=== PATIENT | female | born 1990 | race Caucasian/White ===

== ENCOUNTER 2018-04-24 19:25 | Inpatient (IN) | payer OTHER, SELFPAY ==
[2018-04-24] MEDS ORDERED: NA CHLORIDE 0.9% 1,000 ML ONE (19:50)
[2018-04-24 20:20] LABS: Absolute Lymphocytes (CBC) 4.9 K/uL (0.7-4.9); Absolute Neutrophil 8.2 K/uL (1.8-8.0); Basophils % 0.3 % (0-1.3); Eosinophils % 0.9 % (0-4.4); Hematocrit 35.2 % (36.0-45.0); Lymphocytes % 34.4 % (15.3-44.8); MPV 9.3 fL (7.6-11.3); Monocytes % 6.8 % (3.3-12.3); RBC Red Blood Cell Count 4.07 M/uL (3.86-4.86)
[2018-04-24 20:25] LABS: Protime INR 1.09
--- NOTE | 2018-04-24 20:32 | EDPHYS ---
Physician Documentation [facility] Name: Asia Myers Age: 28 yrs Sex: Female : 1990 Arrival Date: 04/24/2018 Time: 19:25 Bed 19 Private MD: ED Physician Tyler Kaur HPI: 04/24 19:46 This 28 yrs old Female presents to ER via Unassigned with complaints of jose luis Abdominal Pain. 19:46 The patient presents with abdominal pain in the upper abdomen, in the right upper jose luis quadrant, right lower quadrant. Onset: The symptoms/episode began/occurred just prior to arrival. sudden , pale, hypotensive, lmp february. The patient has experienced near-syncope, almost passed out. The patient presents with feeling faint, generalized weakness, sever abd pain. 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 - Social history:: Smoking status: Patient/guardian denies using tobacco, Patient/guardian denies using alcohol, street drugs. - Family history:: not pertinent. - Ebola Screening: : Patient negative for fever greater than or equal to 101.5 degrees Fahrenheit, and additional compatible Ebola Virus Disease symptoms Patient denies exposure to infectious person Patient denies travel to an Ebola-affected area in the 21 days before illness onset. ROS: 19:46 Neck: Negative for injury, pain, and swelling, : Negative for injury, bleeding, jose luis discharge, and swelling. 19:46 Constitutional: Positive for fatigue. 19:46 Cardiovascular: Positive for palpitations. 19:46 Abdomen/GI: Positive for abdominal pain, abdominal distension, of the right upper quadrant, left upper quadrant, right lower quadrant and left lower quadrant. 19:46 Skin: Positive for pallor. Exam: 19:46 Eyes: Pupils equal round and reactive to light, extra-ocular motions intact. Lids and jose luis lashes normal. Conjunctiva and sclera are non-icteric and not injected. Cornea within normal limits. Periorbital areas with no swelling, redness, or edema. Respiratory: Lungs have equal breath sounds bilaterally, clear to auscultation and percussion. No rales, rhonchi or wheezes noted. No increased work of breathing, no retractions or nasal flaring. 19:46 Constitutional: The patient appears in obvious distress, moderately distressed. 19:46 Eyes: Conjunctiva: pale. 19:46 Cardiovascular: Rate: tachycardic, Rhythm: regular, Pulses: Pulses are 2+ in bilateral radial, brachial, femoral, popliteal, posterior tibial and and dorsalis pedis arteries.. JVD: is not appreciated. 19:46 Respiratory: Exam negative for 19:46 Abdomen/GI: Inspection: distension, Bowel sounds: diminished, Palpation: severe abdominal tenderness, voluntary guarding, is elicited in all quadrants, Liver: no appreciated palpable abnormalities, Hernia: not appreciated. Vital Signs: 19:40 BP 89 / 58; Pulse 65; Resp 15; Temp 97.7; Pulse Ox 98% ; Weight 113.4 kg; Height 5 ft. rr5 7 in. (170.18 cm); Pain 10/10; 19:50 BP 97 / 71; Pulse 62; Resp 16; Pulse Ox 98% ; rr5 20:00 BP 98 / 52; Pulse 86; Resp 19; Pulse Ox 98% ; rr5 20:20 BP 96 / 69; Pulse 84; Resp 17; Pulse Ox 99% ; rr5 20:30 BP 100 / 72; Pulse 79; Resp 16; Pulse Ox 98% ; rr5 21:00 BP 93 / 63; Pulse 78; Resp 16; Pulse Ox 98% ; rr5 19:40 Body Mass Index 39.16 (113.40 kg, 170.18 cm) rr5 MDM: 19:29 Patient medically screened. [facility] 19:50 Data reviewed: vital signs, nurses notes, lab test result(s), EKG, radiologic studies, [facility] plain films, ultrasound. 04/24 19:45 Order name: Basic Metabolic Panel [facility] 04/24 19:45 Order name: CBC with Diff; Complete Time: 20:33 [facility] 04/24 19:45 Order name: LFT's [facility] 04/24 19:45 Order name: Magnesium [facility] 04/24 19:45 Order name: NT PRO-BNP [facility] 04/24 19:45 Order name: PT-INR; Complete Time: 20:33 [facility] 04/24 19:45 Order name: Troponin (emerg Dept Use Only) [facility] 04/24 19:45 Order name: Lipase [facility] 04/24 19:45 Order name: Urine Culture [facility] 04/24 19:45 Order name: HCG-Quantitative [facility] 04/24 19:45 Order name: Type And Screen [facility] 04/24 20:00 Order name: Packed RBC Leukored -1 [facility] 04/24 20:17 Order name: Urine Dipstick--Ancillary (enter results) 04/24 20:17 Order name: Urine --Ancillary (enter results) 04/24 19:45 Order name: EKG; Complete Time: 19:46 [facility] 04/24 19:45 Order name: Cardiac monitoring; Complete Time: 21:29 [facility] 04/24 19:45 Order name: EKG - Nurse/Tech; Complete Time: 21:29 [facility] 04/24 19:45 Order name: IV Saline Lock; Complete Time: 21:29 [facility] 04/24 19:45 Order name: Labs collected and sent; Complete Time: 21:29 [facility] 04/24 19:45 Order name: O2 Per Protocol; Complete Time: 21:30 [facility] 04/24 19:45 Order name: US Transvaginal Ob [facility] 04/24 20:22 Order name: Urine Dipstick--Ancillary (enter results) [facility] 04/24 20:22 Order name: Urine --Ancillary (enter results) [facility] 04/24 20:57 Order name: ABO/RH no charge [facility] 04/24 19:45 Order name: O2 Sat Monitoring; Complete Time: 21:30 [facility] 04/24 19:45 Order name: Urine Dipstick-Ancillary (obtain specimen); Complete Time: 21:29 [facility] 04/24 19:45 Order name: Urine Test (obtain specimen); Complete Time: 21:29 [facility] 04/24 19:45 Order name: IV Saline Lock - Large Bore; Complete Time: 21:35 [facility] 04/24 19:50 Order name: Phan; Complete Time: 21:26 [facility] 04/24 20:17 Order name: NPO; Complete Time: 21:30 [facility] Administered Medications: 19:50 Drug: NS 0.9% 1000 ml Route: IV; Rate: 1 bolus; Site: right forearm; rr5 20:45 Follow up: Response: No adverse reaction; IV Status: Completed infusion; IV Intake: rr5 1000ml 20:40 Drug: Rocephin - (cefTRIAXone) 1 grams Route: IVPB; Infused Over: 30 mins; Site: left rr5 hand; 21:10 Follow up: Response: No adverse reaction; IV Status: Completed infusion; IV Intake: [id number] 20:45 Drug: Ringers - Lactated Ringers Solution 1000 ml Route: IV; Rate: 1000 bolus; Site: rr5 right forearm; 21:15 Follow up: Response: No adverse reaction; IV Status: Infusion continued upon admission; rr5 IV Intake: 400ml 20:50 Drug: ProTONIX 40 mg Route: IVP; Site: right forearm; rr5 Disposition: 04/24/18 20:31 Hospitalization ordered by Lenny Mason for Inpatient Admission. Preliminary diagnosis are Ectopic - ruptured, Abdominal tenderness, Hemoperitoneum, Hypotension. - Bed requested for Operating Room. - Status is Inpatient Admission. rr5 - Condition is Guarded. - Problem is new. - Symptoms have improved. UTI on Admission? Yes Signatures: Dispatcher [employer] [facility] Tyler Kaur MD MD cha Roque, Raymond RN RN rr5 Corrections: (The following items were deleted from the chart) 20:34 19:45 Blood Transfusion Consent ordered. [facility] 20:34 20:13 Abdomen Complete+US.RAD.BRZ ordered. [facility] EDMN 20:35 20:31 Hospitalization Ordered by Lenny Mason MD for Inpatient Admission. [facility] Preliminary diagnosis is Ectopic - ruptured; Abdominal tenderness; Hemoperitoneum. Bed requested for Operating Room. Status is Inpatient Admission. Condition is Guarded. Problem is new. Symptoms have improved. UTI on Admission? Yes. [facility] 20:41 19:46 Chest Single View+RAD.RAD.BRZ ordered. [facility] EDMN 21:31 20:35 04/24/2018 20:31 Hospitalization Ordered by Lenny Mason MD for Inpatient rr5 Admission. Preliminary diagnosis is Ectopic - ruptured; Abdominal tenderness; Hemoperitoneum; Hypotension. Bed requested for Operating Room. Status is Inpatient Admission. Condition is Guarded. Problem is new. Symptoms have improved. UTI on Admission? Yes. [facility]
--- NOTE | 2018-04-24 20:32 | ER ---
Nurse's Notes [facility] Name: Asia Myers Age: 28 yrs Sex: Female : 1990 Arrival Date: 04/24/2018 Time: 19:25 Bed 19 Private MD: Diagnosis: Ectopic -ruptured;Abdominal tenderness;Hemoperitoneum;Hypotension Presentation: 04/24 19:40 Presenting complaint: EMS states: sudden onset of right upper quadrant pain, while she rr5 was in the restroom felt pain became diaphoretic and weak. 19:40 Transition of care: patient was not received from another setting of care. Onset of rr5 symptoms was April 24, 2018. Risk Assessment: Do you want to hurt yourself or someone else? Patient reports no desire to harm self or others. Initial Sepsis Screen: Does the patient meet any 2 criteria? No. Patient's initial sepsis screen is negative. Does the patient have a suspected source of infection? No. Patient's initial sepsis screen is negative. Care prior to arrival: None. 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 - Social history:: Smoking status: Patient/guardian denies using tobacco, Patient/guardian denies using alcohol, street drugs. - Family history:: not pertinent. - Ebola Screening: : Patient negative for fever greater than or equal to 101.5 degrees Fahrenheit, and additional compatible Ebola Virus Disease symptoms Patient denies exposure to infectious person Patient denies travel to an Ebola-affected area in the 21 days before illness onset. Screenin:45 Abuse screen: Denies threats or abuse. Denies injuries from another. Nutritional rr5 screening: No deficits noted. Tuberculosis screening: No symptoms or risk factors identified. Fall Risk IV access (20 points). Gait- Normal/Bed Rest/Wheelchair (0 pts) Total Diamond Fall Scale indicates No Risk (0-24 pts). Assessment: 19:45 General: Appears uncomfortable, ill, Behavior is calm, cooperative, appropriate for rr5 age, crying. Pain: Complains of pain in abdomen. Pain: Pain does not radiate. Pain currently is 10 out of 10 on a pain scale. Quality of pain is described as aching, Pain began suddenly, Is continuous. Neuro: Level of Consciousness is awake, alert, obeys commands, Oriented to person, place, time, situation, Appropriate for age. 19:45 Cardiovascular: Capillary refill < 3 seconds Clubbing of nail beds is present PALE. rr5 Cardiovascular: Rhythm is regular. Respiratory: Airway is patent Respiratory effort is even, unlabored, Respiratory pattern is regular, symmetrical. GI: Abdomen is round obese, Bowel sounds present X 4 quads. Abdomen is tender to palpation X 4 quads. Reports lower abdominal pain, upper abdominal pain. : No signs and/or symptoms were reported regarding the genitourinary system. EENT: No signs and/or symptoms were reported regarding the EENT system. Derm: Skin is intact, Skin is pale, Skin temperature is cool. Musculoskeletal: Capillary refill < 3 seconds, Range of motion: intact in all extremities. 19:50 Reassessment: No changes from previously documented assessment. Patient is alert, rr5 oriented x 3, equal unlabored respirations, skin warm/dry/pink. Seen and examined by dr. kaur with orders made and carried out. 20:15 Reassessment: Patient appears in no apparent distress at this time. smith catheter rr5 inserted by dr. kaur positive urine. whitish discharge noted. positive for test. [facility] Reassessment: dr. andino seen and examined the patient and patient agreed for stat rr5 surgery. consented. 21:00 Reassessment: Patient appears in no apparent distress at this time. Patient is alert, rr5 oriented x 3, equal unlabored respirations, skin warm/dry/pink. awaiting for stat operating staff to come. 21:15 Reassessment: endorsed to [place] surgery staff. vitally stable. rr5 Vital Signs: 19:40 BP 89 / 58; Pulse 65; Resp 15; Temp 97.7; Pulse Ox 98% ; Weight 113.4 kg; Height 5 ft. rr5 7 in. (170.18 cm); Pain 10/10; 19:50 BP 97 / 71; Pulse 62; Resp 16; Pulse Ox 98% ; rr5 20:00 BP 98 / 52; Pulse 86; Resp 19; Pulse Ox 98% ; rr5 20:20 BP 96 / 69; Pulse 84; Resp 17; Pulse Ox 99% ; rr5 20:30 BP 100 / 72; Pulse 79; Resp 16; Pulse Ox 98% ; rr5 21:00 BP 93 / 63; Pulse 78; Resp 16; Pulse Ox 98% ; rr5 19:40 Body Mass Index 39.16 (113.40 kg, 170.18 cm) rr5 ED Course: 19:15 Patient has correct armband on for positive identification. Placed in gown. Bed in low rr5 position. Call light in reach. Side rails up X2. alarm security or surveillance monitor on. Pulse ox on. NIBP on. 19:25 Patient arrived in ED. ds1 19:29 Tyler Kaur MD is Attending Physician. jose luis 19:46 Arm band placed on right wrist. rr5 19:50 No provider procedures requiring assistance completed. Inserted saline lock: 20 gauge rr5 in right forearm, using aseptic technique. Blood collected. 20:10 Inserted saline lock: 20 gauge in left hand, using aseptic technique. Blood collected. rr5 20:15 Smith cath inserted, using sterile technique, 16 Fr., balloon inflated, to gravity rr5 drainage, urine specimen collected. other inserted by dr. kaur returned yellow with white discharge. Patient tolerated well. 20:26 Walker Alanis, HERNANDO is Primary Nurse. rr5 20:29 Triage completed. rr5 20:29 Lenny Andino MD is Hospitalizing Provider. jose luis 20:42 Transvaginal Ob In Process Unspecified. EDMS 21:15 Patient admitted, IV remains in place. intact, No redness/swelling at site. rr5 Administered Medications: 19:50 Drug: NS 0.9% 1000 ml Route: IV; Rate: 1 bolus; Site: right forearm; rr5 20:45 Follow up: Response: No adverse reaction; IV Status: Completed infusion; IV Intake: rr5 1000ml 20:40 Drug: Rocephin - (cefTRIAXone) 1 grams Route: IVPB; Infused Over: 30 mins; Site: left rr5 hand; 21:10 Follow up: Response: No adverse reaction; IV Status: Completed infusion; IV Intake: 51wahs2 20:45 Drug: Ringers - Lactated Ringers Solution 1000 ml Route: IV; Rate: 1000 bolus; Site: rr5 right forearm; 21:15 Follow up: Response: No adverse reaction; IV Status: Infusion continued upon admission; rr5 IV Intake: 400ml 20:50 Drug: ProTONIX 40 mg Route: IVP; Site: right forearm; rr5 Intake: 20:45 IV: 1000ml; Total: 1000ml. rr5 21:10 IV: 10ml; Total: 1010ml. rr5 21:15 IV: 400ml; Total: 1410ml. rr5 Outcome: 20:31 Decision to Hospitalize by Provider. jose luis 21:15 Admitted to OR via stretcher, with chart, Report called to Sarah rr5 21:15 Condition: stable rr5 21:15 Instructed on the need for admit, need for stat surgery 21:31 Patient left the ED. rr5 Signatures: Dispatcher [employer] Tyler Maldonado MD MD cha Sanford, Demi ds1 Walker Alanis, RN RN rr5
[2018-04-24] MEDS ORDERED: PANTOPRAZOLE 40 MG INJ ONE (20:43)
[2018-04-24] MEDS ORDERED: CEFTRIAXONE/SWI 1gm 1 GM/10 ML SYR ONE (20:43)
[2018-04-24] MEDS ORDERED: Ringers Lactate 1,000 ML IV ONE ×3 (20:43→23:09)
--- NOTE | 2018-04-24 20:53 | RAD REPORT ---
EXAM DESCRIPTION: US - Transvaginal OB - 04/24/2018 8:42 pm CLINICAL HISTORY: Abd cramping, ;Abd pain COMPARISON: No comparisons FINDINGS: The uterus measures 7.3 x 5.5 x 4.6 cm. Endometrial stripe is thin without evidence of IUP . In the right adnexa, a gestational sac and small embryo is present measuring 17 mm corresponding to 8 weeks 0 days gestational age. Cardiac activity 105 BPM is seen. This is compatible with right adnexa l ectopic . Neither ovary was well identified due to bowel gas. No abnormality seen in the left adnexa. No pelvic ascites. IMPRESSION: Live 8 week ectopic is seen in the right adnexa. No pelvic free fluid.
[2018-04-24 20:59] LABS: ALT/SGPT 18 U/L (12-78); AST/SGOT 15 U/L (15-37); Albumin 2.9 g/dL (3.4-5.0); Alkaline Phosphatase 65 U/L (45-117); BUN Blood Urea Nitrogen 9 mg/dL (7-18); Bicarbonate 23 mmol/L (21-32); Bilirubin Direct < 0.1 mg/dL (0-0.2); Bilirubin Total 0.2 mg/dL (0.2-1.0); Glucose Level 118 mg/dL (74-106); HCG, Quantitative 17744 mIU/mL (1-3); Lipase 82 U/L (73-393); Magnesium 1.8 mg/dL (1.8-2.4); NT PRO-BNP 19 pg/mL (<125); Potassium 3.5 mmol/L (3.5-5.1); Protein, Total 6.5 g/dL (6.4-8.2); Sodium Level 140 mmol/L (136-145); Troponin (Emerg Dept Use Only) < 0.02 ng/mL (0.0-0.045)
[2018-04-24] MEDS ORDERED: PROPOFOL 200 MG/20 ML VIAL IV ONE (21:10)
[2018-04-24] MEDS ORDERED: Phenylephrine HCl 10 MG/ML 1 ML VIAL ONE (21:11)
[2018-04-24] MEDS ORDERED: ROCURONIUM 50 MG/5 ML VIAL IV ONE (21:12)
[2018-04-24] MEDS ORDERED: LIDOCAINE 2% MPF 5 ML VIAL ONE (21:12)
[2018-04-24] MEDS ORDERED: SUCCINYLCHOLINE 20 MG/ML (10 ML) IV ONE (21:15)
[2018-04-24 21:22] LABS: Urine Blood NEGATIVE (NEG); Urine Glucose NEGATIVE (NEG); Urine Protein 2+ (NEG); Urine Specific Gravity >1.030 (1.005-1.030); Urine pH 5.5 (5.0-7.0)
[2018-04-24 21:22] LABS: Urine Blood NEGATIVE (NEG); Urine Glucose NEGATIVE (NEG); Urine Protein 2+ (NEG); Urine Specific Gravity >1.030 (1.005-1.030); Urine pH 5.5 (5.0-7.0)
[2018-04-24] MEDS ORDERED: FENTANYL CITR 100 MCG/2 ML ONE (21:49)
[2018-04-24] MEDS ORDERED: DEXAMETHASONE 4 MG/ML VIAL ONE (21:57)
[2018-04-24] MEDS ORDERED: KETOROLAC 30 MG/ML INJ ONE (21:57)
[2018-04-24] MEDS ORDERED: ONDANSETRON 4 MG/2 ML VIAL ONE (21:58)
[2018-04-24] MEDS ORDERED: GLYCOPYRROLATE 0.2 MG/ML SYR ONE (22:05)
[2018-04-24] MEDS ORDERED: NEOSTIGMINE 1 MG/ML -10 ML VIAL ONE (22:05)
[2018-04-24] MEDS ORDERED: HYDROCODONE/APAP 5/325 MG TAB PO PRN (22:39)
[2018-04-24] MEDS ORDERED: BUTORPHANOL 1 MG/ML INJ IV PRN (22:39)
[2018-04-24] MEDS ORDERED: ONDANSETRON 4 MG (ODT) TAB PO PRN (22:39)
[2018-04-24] MEDS ORDERED: PROMETHAZINE 25 MG/ML VIAL IV PRN (22:39)
[2018-04-24] MEDS ORDERED: HYDROMORPHONE HCL 1 MG/ML INJ IV ONE (22:47)
--- NOTE | 2018-04-24 22:52 | P.BOP ---
Preoperative diagnosis: Right tubal ectopic Postoperative diagnosis: same Primary procedure: oversew ruptured right ectopic Estimated blood loss: 500ml in abdomen, less than 20ml surgery related Specimen: Findings: hemoperitoneum Anesthesia: General Complications: None Drain(s): Urinary catheter Transferred to: Recovery Room Condition: Good
[2018-04-24] MEDS ORDERED: HYDROMORPHONE HCL 1 MG/ML INJ ONE (22:57)
[2018-04-24] MEDS ORDERED: Ringers Lactate 1,000 ML IV SCH (23:00)
[2018-04-24] MEDS ORDERED: ONDANSETRON 4 MG/2 ML VIAL IV PRN ×2 (23:02→23:41)
[2018-04-24] MEDS ORDERED: NA CHLORIDE 0.9% 1,000 ML IV SCH (23:02)
[2018-04-24] MEDS ORDERED: CEFTRIAXONE 1 GM/NS 50 ML 1 GM/50 ML BAG IV SCH (23:02)
[2018-04-24] MEDS ORDERED: FENTANYL CITR 100 MCG/2 ML IV PRN (23:02)
[2018-04-24] MEDS ORDERED: D5LR 1,000 ML IV SCH (23:45)
[2018-04-25 00:07] VITALS: O2SAT 93
[2018-04-25 00:38] VITALS: BMI 41.4
[2018-04-25] MEDS: BUTORPHANOL 1 MG/ML INJ IV PRN ×2 (01:55→05:35)
--- NOTE | 2018-04-25 02:49 | PREOPHP ---
Date of Admission: 04/24/2018 History Of Present Illness: Ms. Myers is a 28-year-old, single, female, 1, para 0 , whose last menstrual period was some time in February. She comes in with sudden onset of right abd ominal pain starting about 6:30 this evening. Ultrasound reveals a right tubal ectopic wit h blood around the . She denies recent cough, cold, fever or chills. Past Medical History: Includes no prior hospitalizations, accidents, illnesses, injuries, or surgery . Medications: She is on no medications on a regular basis. Allergies: SHE LISTED HER ALLERGY TO IBUPROFEN, WHICH CAUSES FLARE UP OF HER ASTHMA. SHE HAS NOT US ED AN ASTHMA INHALER. SHE HAS NO OTHER ALLERGIES. Family History: Noncontributory. Review of Systems: She reports no recent cough, cold, fever, or chills. No recent nausea or vomiting. She denies any b reast lumps. She denies any urine symptoms. She denies any bowel problems. Physical Examination: General: Reveals a pale, female, in moderate discomfort. Neck: Supple without adenopathy or thyromegaly. Lungs: Clear. Cardiac: Regular rate and rhythm without murmurs. Abdomen: Diffuse tenderness in all quadrants wit h rebound tenderness in all quadrants. Pelvic: Not performed. Extremities: No cyanosis, clubbing, or edema. Imaging: Ultrasound as above. Impression: Probable right tubal ectopic with bleeding. Plan: The patient will be taken for exploratory laparotomy, with diffuse rebound tenderness, probabl y very significant amount of blood within the pelvis, and laparoscopy may be difficult to achieve con trol and visualization. Risks and benefits are discussed. She has signed operative permit in my pre sence. JAMIA/MODSanam Voice ID: [id number]
[2018-04-25 04:54] LABS: Absolute Lymphocytes (CBC) 0.7 K/uL (0.7-4.9); Absolute Monocytes 0.3 K/uL (0.1-1.3); Absolute Neutrophil 13.8 K/uL (1.8-8.0); Basophils % 0.1 % (0-1.3); Hematocrit 26.3 % (36.0-45.0); Lymphocytes % 4.8 % (15.3-44.8); MPV 9.5 fL (7.6-11.3); Monocytes % 2.2 % (3.3-12.3); RBC Red Blood Cell Count 3.05 M/uL (3.86-4.86)
[2018-04-25 05:51] LABS: Blood Morphology Comment NOT SEEN (NOT SEEN); Platelet Estimate ADEQ
--- NOTE | 2018-04-25 07:18 | EKG ---
Test Date: 2018-04-24 Test Time: 20:51:39 Collar Cutter: RR MEASUREMENT RESULTS: Intervals: Rate: 65 [place]: 142 QRSD: 72 QT: 396 QTc: 411 [place]: P: 22 [place]: 142 QRS: 58 T: 8 INTERPRETIVE STATEMENTS: Normal sinus rhythm Normal ECG Compared to ECG 05/28/1998 12:51:00 Sinus arrhythmia no longer present Electronically Signed On 04-25-18 07:17:57 AUTOMOTIVE ELECTRICIAN by Simon Haas
[2018-04-25] MEDS ORDERED: INFLUENZA VACCINE (for 3y+) 0.5 ML DOSE IMVAC ONE (09:00)
[2018-04-25] MEDS: ACETAMINOPHEN 500 MG TAB PO PRN ×2 (09:30→17:42)
--- NOTE | 2018-04-25 12:35 | OP ---
Surgeon: Lenny Mason MD Anesthesiologist: Dr. Ramy Gross. Estimated procedure blood loss less than 20 cc. There was an approximately 500 cc of blood clot in t he peritoneum, as much as possible, this was removed both manually, sump suction, and with washing wi th Ringer's lactate solution. Preoperative Diagnosis: Right tubal ectopic . Procedures: General endotracheal anesthesia, exploratory laparotomy, evacuation of hemoperitoneum, r epair of right ruptured tubal ectopic . Description Of Procedure: After the patient was prepped and draped in usual fashion with general end otracheal anesthesia, a small Pfannenstiel skin incision was made, carried down to the fascia, fascia incised. This was from the underlying rectus muscles, which were in midline. P eritoneum entered. A large amount of blood noted, pool sump suction used to evacuate. Exploration r evealed a right tubal ectopic that had ruptured off the posterior portion of the tube appro ximately 2 cm from the cornua of the uterus. After removal of blood, packing of bowel, and with the aid of an Ayana'Asad Sherman self-retaining retractor, this portion of the tube and bleeding controlle d by a [id number] suture of 0 Vicryl x2. Right corpus luteum cyst was noted, which was not blee ding. Left tube and ovary appeared to be normal. Pack of moistened laps and self-retaining retracto r were removed. The rectus muscles were approximated in the midline with simple sutures of 0 Vicryl, and the fascia was closed with a running suture of #1 Vicryl from 1 margin to the other. Subcutaneo us tissue closed with simple sutures of 3-0 Vicryl, subdermal suture of 3-0 Vicryl, 4-0 subcuticular suture of Vicryl. Dressing was placed. The patient was awakened, extubated, taken to recovery room in satisfactory condition with sponge and needle counts c orrect x2. MPG/MODL Voice ID: [id number] Report ID: [id number]
[2018-04-25] MEDS ORDERED: Oxycodone HCl/Acetaminophen 1 TAB TAB PO PRN ×2 (18:06→18:09)
[2018-04-26 07:13] VITALS: BP 125/57; TEMP 98.9
--- NOTE | 2018-04-26 12:13 | DS ---
Date of Discharge: 04/26/2018 Final Hospital Discharge Diagnosis: Ruptured right tubal ectopic with hemoperitoneum. Complications: Acute blood loss anemia. Procedures: Exploratory laparotomy, repair of right ruptured tubal ectopic . Hospital Course: The patient is a 28-year-old black female, 1, para 0 admitted with ruptured right ectopic , who underwent exploratory laparotomy. Lab work revealed a hemoperitoneum w ith ruptured right tubal ectopic . Lab work included an admission hemoglobin and hematocrit of 11.8 and 35.2, dismissal 8.9 and 26.3. She is Rh positive blood type, antibody screen negative. She was dismissed to be seen in my office in 1 week with a prescription for Tylenol No.3 #15 for riaz n relief, to be on iron supplement with usual post laparotomy activity restrictions. JAMIA/JENNIFER Voice ID: [id number] Report ID: [id number]
== END 2018-04-26 10:05 | disposition home or self-care (01) | DRG 818 ==
LOC: ER 19:25 → ERHOLD 20:47 → 2ND-WC 23:12
PROVIDERS: ADMIT Specialist; ATTEND Specialist
PROC: 0D9W0ZZ Drainage of Peritoneum, Open Approach (ICD-10-PCS; 2018-04-24)
PROC: 10T20ZZ Resection of Products of Conception, Ectopic, Open Approach (ICD-10-PCS; principal; 2018-04-24 21:21)
DX: O00.101 Right tubal pregnancy without intrauterine pregnancy (principal); O08.1 Delayed or excessive hemorrhage following ectopic and molar pregnancy; N83.11 Corpus luteum cyst of right ovary
CPT/HCPCS: 36415; 51702; 76817; 80048; 80076; 81003; 81025; 83690; 83735; 83880; 84484; 84702; 85025; 85610; 86850; 86900; 86901; 87086; 87088; 88305; 93005; 99285; C9113; J0330; J0595; J0696; J1170; J2370; J2405; J2704; J2710; J3010; J7030; P9016

== ENCOUNTER 2023-10-12 14:10 | Emergency (ER) | payer OTHER ==
[2023-10-12 14:56] LABS: Absolute Eosinophils 0.1 K/uL (0-0.5); Absolute Lymphocytes (CBC) 3.1 K/uL (0.7-4.9); Absolute Monocytes 1.3 K/uL (0.1-1.3); Absolute Neutrophil 9.9 K/uL (1.8-8.0); Basophils % 0.3 % (0-1.3); Eosinophils % 0.4 % (0-4.4); Hematocrit 42.7 % (36.0-45.0); Hemoglobin 13.9 g/dL (12.0-15.0); Lymphocytes % 21.5 % (15.3-44.8); MCH 28.1 pg (27.0-35.0); MCHC 32.6 g/dL (32.0-36.0); MCV 86.3 fL (80-100); MPV 8.8 fL (7.6-11.3); Monocytes % 8.9 % (3.3-12.3); Neutrophils % 68.9 % (41.7-73.7); Platelets 396 thou/uL (152-406); RBC Red Blood Cell Count 4.94 M/uL (3.86-4.86); Red Cell Distribution Width 14.3 % (12.1-15.2)
[2023-10-12 15:09] LABS: Anion Gap 8.9 mEq/L (5.0-15.0)
[2023-10-12 15:12] LABS: Potassium 3.9 mEq/L (3.5-5.1)
[2023-10-12] MEDS ORDERED: ACETAMINOPHEN 500 MG TAB ONE (15:24)
[2023-10-12 15:40] LABS: Specific Gravity 1.022 (1.005-1.030)
[2023-10-12 15:43] LABS: Specific Gravity 1.022 (1.005-1.030); Urine Bacteria 20-50 /HPF (<20); Urine Bilirubin NEGATIVE (Negative); Urine Blood Negative (Negative); Urine Clarity Extremely Turbid (Clear); Urine Color Yellow (Yellow); Urine Culture Reflex Order NOT NEEDED; Urine Glucose NEGATIVE (Negative); Urine Ketones TRACE (Negative); Urine Microscopic Reflex YN ORDER UMIC; Urine Mucus 1+ /HPF (None Seen); Urine Nitrite 2+ (Negative); Urine Protein TRACE (Negative); Urine RBC <5 /HPF (None Seen); Urine Urobilinogen Normal (Normal); Urine pH 5.5 (5.0-7.0)
--- NOTE | 2023-10-12 16:20 | RAD REPORT ---
EXAM DESCRIPTION: CT - Soft Tissue Neck W/Contr CLINICAL HISTORY: FACIAL PAIN Facial pain and swelling COMPARISON: <Comparisons> TECHNIQUE All CT scans are performed using dose optimization technique as appropriate and may includ e automated exposure control or mA/KV adjustment according to patient size. FINDINGS: Moderate inflammation is seen along the buccal cortex of the mandible particularly involvi ng both molars. There is a large dental erosion present involving several of the mandibular molars. L arge periapical abscess also seen involving right anterior premolar measuring up to 11 mm. No focal f luid collection is indicate odontogenic abscess. Enlarged submandibular reactive lymphadenopathy seen. Elsewhere, no acute process in neck visualize. IMPRESSION: Numerous dental erosions and periapical abscess as detailed with significant surrounding inflammation in the perimandibular soft tissues along the buccal cortex. Odontogenic abscess not see n.
--- NOTE | 2023-10-12 16:33 | ER ---
Nurse's Notes [facility] [place] Name: Asia Myers Age: 33 yrs Sex: Female : 1990 Arrival Date: 10/12/2023 Time: 14:10 Bed IW1 Private MD: Diagnosis: Periapical abscess without sinus Presentation: 10/11 14:15 Chief complaint: EMS states: left sided facial swelling for 3 days. Coronavirus screen: ko1 At this time, the client does not indicate any symptoms associated with coronavirus-19. Ebola Screen: No symptoms or risks identified at this time. Initial Sepsis Screen: Does the patient meet any 2 criteria? No. Patient's initial sepsis screen is negative. Does the patient have a suspected source of infection? No. Patient's initial sepsis screen is negative. Risk Assessment: Do you want to hurt yourself or someone else? Patient reports no desire to harm self or others. Onset of symptoms is unknown. Care prior to arrival: Glucose check: 79. 14:15 Method Of Arrival: EMS: [facility] ko1 14:15 Acuity: HUMA 3 ko1 Triage Assessment: 14:17 General: Appears in no apparent distress. Behavior is appropriate for age. Pain: ko1 Complains of pain in left face. 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 - Infectious Disease History:: Denies. - Social history:: Smoking status: Patient denies any tobacco usage or history of. Screenin:59 [facility] ED Fall Risk Assessment (Adult) History of falling in the last 3 months, ll1 including since admission No falls in past 3 months (0 pts) Confusion or Disorientation No (0 pts) Intoxicated or Sedated No (0 pts) Impaired Gait No (0 pts) Mobility Assist Device Used No (0 pt) Altered Elimination No (0 pt) Score/Fall Risk Level 0 - 2 = Low Risk Maintained a safe environment, Hourly rounding (assess needs \T\ fall precautionary measures) done. Abuse screen: Denies threats or abuse. Nutritional screening: No deficits noted. Tuberculosis screening: No symptoms or risk factors identified. Assessment: 16:59 Reassessment: No changes from previously documented assessment. Patient and/or family ll1 updated on plan of care and expected duration. Pain level reassessed. Patient is alert, oriented x 3, equal unlabored respirations, skin warm/dry/pink. Patient states feeling better. Vital Signs: 14:17 BP 142 / 96; Pulse 92; Resp 16; Temp 98.7; Pulse Ox 96% ; ko1 16:59 BP 141 / 81; Pulse 88; Resp 17; Pulse Ox 96% ; ll1 ED Course: 14:13 Patient arrived in ED. ra3 14:17 Triage completed. ko1 14:17 Arm band placed on right wrist. Patient placed in waiting room, Patient notified of ko1 wait time. 14:22 Dionne Yin FNP-C is PHCP. kb 14:22 Tyler Kaur MD is Attending Physician. kb 14:41 Initial lab(s) drawn, by me, sent to lab. Inserted saline lock: 20 gauge in left wrist, zm using aseptic technique. Blood collected. Flushed with 10 mL NS. 14:41 CBC with Diff Sent. zm 14:41 Basic Metabolic Panel Sent. zm 15:30 Test, Urine Sent. ko1 15:31 Urinalysis w/ reflexes Sent. ko1 15:42 Urine collected: clean catch specimen, rhonda colored. ko1 16:07 Soft Tissue Neck W/Contr CT In Process Unspecified. EDMS 16:59 No provider procedures requiring assistance completed. IV discontinued, intact, ll1 bleeding controlled, No redness/swelling at site. Pressure dressing applied. 17:00 Patient has correct armband on for positive identification. Bed in low position. ll1 Provided Education on: return to ED for worsening symptoms. Cardiac monitoring not applicable on this patient. Administered Medications: 15:27 Drug: Acetaminophen PO 1000 mg PO once Route: PO; ko1 16:07 Follow up: Response: No adverse reaction ko1 Medication: 17:00 VIS not applicable for this client. ll1 Outcome: 16:32 Discharge ordered by . kb 17:00 Discharged to home ambulatory, [facility] 17:00 Condition: stable 17:00 Discharge instructions given to patient, Instructed on discharge instructions, follow up and referral plans. medication usage, Demonstrated understanding of instructions, follow-up care, medications, Prescriptions given X 1, 17:01 Patient left the ED. ll1 Signatures: Dispatcher [employer] EDDionne Pope FNP-C FNP-Prosper Ordonez, RN RN ll1 Prema Ballard Kathy, RN RN ko1 Bella Eric ra3 Corrections: (The following items were deleted from the chart) 14:24 14:17 Allergies: Ibuprofen; ko1 ko1
--- NOTE | 2023-10-12 16:33 | EDPHYS ---
Physician Documentation [facility] Name: Asia Myers Age: 33 yrs Sex: Female : 1990 Arrival Date: 10/12/2023 Time: 14:10 Bed IW1 Private MD: ED Physician Tyler Kaur HPI: 10/11 16:31 This 33 yrs old Black Female presents to ER via EMS with complaints of Facial Swelling. kb 16:31 Pt is a 33 year old female who presents for left sided facial swelling and pain that kb started 3 days ago. Denies dental pain. States pain radiates down throat upon swallowing. Denies fever. 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 - Infectious Disease History:: Denies. - Social history:: Smoking status: Patient denies any tobacco usage or history of. ROS: 16:28 Constitutional: As per HPI kb Exam: 16:28 Constitutional: This is a well developed, well nourished patient who is awake, alert, kb and in no acute distress. Head/Face: Normocephalic, atraumatic. Cardiovascular: Regular rate Respiratory: Respirations even and unlabored. No increased work of breathing. Talking in full sentences Skin: Warm, dry with normal turgor. Normal color. MS/ Extremity: Pulses equal, no cyanosis. Neurovascular intact. Full, normal range of motion. Neuro: Awake and alert, GCS 15, oriented to person, place, time, and situation. Moves all extremities. Normal gait. 16:28 ENT: Dental exam: dental caries, left facial swelling. Vital Signs: 14:17 BP 142 / 96; Pulse 92; Resp 16; Temp 98.7; Pulse Ox 96% ; ko1 16:59 BP 141 / 81; Pulse 88; Resp 17; Pulse Ox 96% ; ll1 MDM: 14:22 Patient medically screened. kb 16:30 Differential diagnosis: dental caries, abscess. Data reviewed: vital signs, nurses kb notes. Counseling: I had a detailed discussion with the patient and/or guardian regarding the historical points, exam findings, and any diagnostic results supporting the discharge/admit diagnosis, lab results, radiology results, the need for outpatient follow up, a dentist, to return to the emergency department if symptoms worsen or persist or if there are any questions or concerns that arise at home. 10/11 14:25 Order name: CBC with Diff; Complete Time: 15:02 kb 10/11 14:25 Order name: Basic Metabolic Panel; Complete Time: 15:14 kb 10/11 15:15 Order name: Test, Urine; Complete Time: 15:54 kb 10/11 15:15 Order name: Urinalysis w/ reflexes; Complete Time: 15:45 kb 10/11 14:25 Order name: Soft Tissue Neck W/Contr CT; Complete Time: 16:27 kb 10/11 14:25 Order name: IV Start; Complete Time: 14:41 kb Administered Medications: 15:27 Drug: Acetaminophen PO 1000 mg PO once Route: PO; ko1 16:07 Follow up: Response: No adverse reaction ko1 Disposition: 21:26 Co-signature as Attending Physician, Tyler Kaur MD I agree with the assessment and jose luis plan of care. Disposition Summary: 10/12/23 16:32 Discharge Ordered Notes: Location: Home kb Condition: Stable kb Diagnosis - Periapical abscess without sinus kb Followup: kb - With: Emergency Department - When: As needed - Reason: Worsening of condition Followup: kb - With: Private Physician - When: 2 - 3 days - Reason: Recheck today's complaints, Continuance of care, Re-evaluation by your physician Discharge Instructions: - Discharge Summary Sheet kb - Dental Abscess, [id number] kb Forms: - Medication Reconciliation Form kb - Antibiotic Education kb - Prescription Opioid Use kb - Patient Portal Instructions kb - Leadership Thank You Letter kb Prescriptions: - Augmentin 875-125 mg Oral Tablet - take 1 tablet ORAL route every 12 hours for 10 days; 20 tablet; Refills: 0, kb Product Selection Permitted Signatures: Dispatcher [employer] EDDionne Pope FNP-C FNP-Ckb Anderson, Corey, MD MD cha Oliver, Kathy, HERNANDO RN ko1 Corrections: (The following items were deleted from the chart) 14:24 14:17 Allergies: Ibuprofen; ko1 ko1 14:25 14:25 CBC+H.LAB.BRZ ordered. EDMS EDMS 14: 14:25 BASIC METABOLIC PANEL+C.LAB.BRZ ordered. EDMS EDMS 14: 14:25 Soft Tissue Neck W/Contr+CT.RAD.BRZ ordered. EDMS EDMS
[2023-10-12 21:22] VITALS: TEMP 98.7; O2SAT 96
[2023-10-12 21:23] VITALS: BP 141/81
== END 2023-10-12 17:01 | disposition home or self-care (01) ==
LOC: ER 14:10
DX: K04.7 Periapical abscess without sinus (principal)
CPT/HCPCS: 85025; 81001; 80048; 36415; 81025; 70491; Q9967; 99284